=== PATIENT | female | born 1995 | race Caucasian/White ===

== ENCOUNTER 2017-02-25 16:29 | Emergency (ER) | payer SELFPAY ==
[~2017-02-25] VITALS: Ht 154.9 cm; Wt 119.0 kg
[2017-02-25 16:32] VITALS: BP 124/70; PULSE 75; RESP 16; TEMP 97.5; O2SAT 100
[2017-02-25] MEDS ORDERED: ONDANSETRON HCL 4 MG/2 ML VIAL IV PUSH ONE (17:00)
[2017-02-25] MEDS ORDERED: SODIUM CHLOR 0.9% 1000 ML INJ 1,000 ML IV ONE (17:00)
--- NOTE | 2017-02-25 17:02 | PD ---
HPI Chief Complaint: Dizziness Time Seen by Provider: 16:53 Travel History International Travel<30 days: No Contact w/Intl Traveler<30days: No Traveled to known affect area: No History of Present Illness HPI This 21-year-old female has been sick off and on since last . She had some vomiting and she felt lightheaded at times. She vomited throughout the night. Sunday she felt a little bit better and went to work. Today she is feeling lightheaded and is nauseated again. She has had some vomiting. she says there is no chance of . PFSH Past Medical History Asthma: Yes ( A CHILD) Autoimmune Disease: No Blood Disorders: No Anxiety: No Depression: Yes (ANSWERED BY MOTHER) Cardiovascular Problems: No Diminished Hearing: No GERD: Yes Genitourinary: No Musculoskeletal: No Neurologic: No Psychiatric: No Reproductive: No Respiratory: Yes (CHILDHOOD ASTHMA) Immunizations Current: Yes Sickle Cell Disease: No ?: Not LMP: LAST WEEK Menopausal: No Past Surgical History Appendectomy: No Cholecystectomy: Yes Other Surgery: No Social History Alcohol Use: No Tobacco Use: No Substance Use: No Allergies-Medications (Allergen,Severity, Reaction): Coded Allergies: Latex (Verified Allergy, Unknown, PT STATES NOT TRUE, 02/25/17) Uncoded Allergies: VINYL (Allergy, Intermediate, RASH, 11/15/16) Reported Meds & Prescriptions Reported Meds & Active Scripts Active No Active Prescriptions or Reported Medications Review of Systems General / Constitutional: No: Fever, Chills Eyes: No: Diploplia, Blurred Vision HENT: Positive: Lightheadedness Cardiovascular: No: Chest Pain or Discomfort, Palpitations Respiratory: No: Cough, Shortness of Breath Gastrointestinal: Positive: Nausea, Vomiting Genitourinary: No: Frequency, Dysuria Musculoskeletal: No: Myalgias, Arthralgias Skin: No Rash, No Itching Neurologic: No: Weakness, Dizziness Hematologic/Lymphatic: No: Easy Bruising Physical Exam Narrative GENERAL: Well-developed female SKIN: Focused skin assessment warm/dry. HEAD: Atraumatic. Normocephalic. EYES: Pupils equal and round. No scleral icterus. No injection or drainage. ENT: No nasal bleeding or discharge. Mucous membranes pink and moist. NECK: Trachea midline. No JVD. CARDIOVASCULAR: Regular rate and rhythm. No murmur appreciated. RESPIRATORY: No accessory muscle use. Clear to auscultation. Breath sounds equal bilaterally. GASTROINTESTINAL: Abdomen soft, non-tender, nondistended. Hepatic and splenic margins not palpable. MUSCULOSKELETAL: No obvious deformities. No clubbing. No cyanosis. No edema. NEUROLOGICAL: Awake and alert. No obvious cranial nerve deficits. Motor grossly within normal limits. Normal speech. PSYCHIATRIC: Appropriate mood and affect; insight and judgment normal. Data Data Last Documented VS Vital Signs Date Time Temp Pulse Resp B/P Pulse Ox O2 Delivery O2 Flow Rate FiO2 02/25/17 16:32 97.5 75 16 124/70 100 Orders Complete Blood Count With Diff (02/25/17 16:58) Comprehensive Metabolic Panel (02/25/17 16:58) Sodium Chlor 0.9% 1000 Ml Inj (Ns 1000 M (02/25/17 17:00) Ondansetron Inj (Zofran Inj) (02/25/17 17:00) Labs Laboratory Tests Test 02/25/17 17:05 White Blood Count 8.9 TH/MM3 Red Blood Count 4.23 MIL/MM3 Hemoglobin 13.1 GM/DL Hematocrit 37.3 % Mean Corpuscular Volume 88.1 FL Mean Corpuscular Hemoglobin 30.9 PG Mean Corpuscular Hemoglobin 35.1 % Concent Red Cell Distribution Width 11.4 % Platelet Count 203 TH/MM3 Mean Platelet Volume 10.1 FL Neutrophils (%) (Auto) 70.8 % Lymphocytes (%) (Auto) 20.8 % Monocytes (%) (Auto) 7.1 % Eosinophils (%) (Auto) 0.9 % Basophils (%) (Auto) 0.4 % Neutrophils # (Auto) 6.4 TH/MM3 Lymphocytes # (Auto) 1.8 TH/MM3 Monocytes # (Auto) 0.6 TH/MM3 Eosinophils # (Auto) 0.1 TH/MM3 Basophils # (Auto) 0.0 TH/MM3 CBC Comment DIFF FINAL Differential Comment Sodium Level 140 MEQ/L Potassium Level 4.1 MEQ/L Chloride Level 107 MEQ/L Carbon Dioxide Level 26.6 MEQ/L Anion Gap 6 MEQ/L Blood Urea Nitrogen 10 MG/DL Creatinine 0.61 MG/DL Estimat Glomerular Filtration 124 ML/MIN Rate Random Glucose 86 MG/DL Calcium Level 8.7 MG/DL Total Bilirubin 0.8 MG/DL Aspartate Amino Transf 20 U/L (AST/SGOT) Alanine Aminotransferase 37 U/L (ALT/SGPT) Alkaline Phosphatase 55 U/L Total Protein 6.9 GM/DL Albumin 3.5 GM/DL MDM Medical Decision Making Medical Screen Exam Complete: Yes Emergency Medical Condition: Yes Medical Record Reviewed: Yes Differential Diagnosis Differential includes food poisoning, gastroenteritis, dehydration Narrative Course Patient given IV fluids and Zofran. Lab work is unremarkable. She is stable for discharge impression is acute vomiting, most likely viral syndrome Diagnosis Primary Impression: Viral syndrome Departure Forms: Tests/Procedures, Work Release Scripts Ondansetron Odt (Zofran Odt)4 Mg Tab4 Mg SL Q6HR PRN (Nausea/Vomiting) #10 TAB Ref 0 Prov:Hari Layne MD 02/25/17 Disposition: 01 DISCHARGE HOME Condition: Stable Hari Layne MD Feb 25, 2017 17:02
[2017-02-25 17:10] LABS: AUTOMATED NEUTROPHIL # 6.4 TH/MM3 (1.8-7.7); BASOPHIL % 0.4 % (0.0-2.0); EOSINOPHIL # 0.1 TH/MM3 (0-0.4); EOSINOPHIL % 0.9 % (0.0-4.0); HEMATOCRIT 37.3 % (35.0-46.0); HEMO FLAGS DIFF FINAL; LYMPH % 20.8 % (9.0-44.0); LYMPHOCYTE # 1.8 TH/MM3 (1.0-4.8); MEAN CELL VOLUME 88.1 FL (80.0-100.0); MEAN CORPUSCULAR HEMOGLOBIN 30.9 PG (27.0-34.0); MEAN CORPUSCULAR HGB CONC 35.1 % (32.0-36.0); MONO % 7.1 % (0.0-8.0); NEUT % 70.8 % (16.0-70.0); PLATELET COUNT 203 TH/MM3 (150-450); RED BLOOD COUNT 4.23 MIL/MM3 (4.00-5.30); RED CELL DISTRIBUTION WIDTH 11.4 % (11.6-17.2); WHITE BLOOD COUNT 8.9 TH/MM3 (4.0-11.0)
[2017-02-25 17:19] LABS: CHLORIDE 107 MEQ/L (98-107); POTASSIUM 4.1 MEQ/L (3.5-5.1); SODIUM (NA) 140 MEQ/L (136-145)
[2017-02-25 17:23] LABS: ANION GAP 6 MEQ/L (5-15); BICARBONATE 26.6 MEQ/L (21.0-32.0); BLOOD UREA NITROGEN 10 MG/DL (7-18)
[2017-02-25 17:26] LABS: ALT (GPT) 37 U/L (10-53); AST (GOT) 20 U/L (15-37); GLOMERULAR FILTRATION RATE 124 ML/MIN (>89)
[2017-02-25 17:28] LABS: TOTAL BILIRUBIN ADULT 0.8 MG/DL (0.2-1.0)
[2017-02-25 17:29] LABS: ALKALINE PHOSPHATASE 55 U/L (45-117)
[2017-02-25] MEDS ORDERED: ZOFR4TAB3 SL (17:48)
== END 2017-02-25 18:14 | disposition home or self-care (01) ==
LOC: PHED 16:29
DX: B34.9 Viral infection, unspecified (principal); R11.2 Nausea with vomiting, unspecified; R42 Dizziness and giddiness; Z87.09 Personal history of other diseases of the respiratory system; Z86.59 Personal history of other mental and behavioral disorders; Z87.19 Personal history of other diseases of the digestive system
CPT/HCPCS: 80053; 85025; 96361; 96374; 99284; J2405; J7030

== ENCOUNTER 2017-04-20 13:01 | Emergency (ER) | payer SELFPAY ==
[~2017-04-20 13:01] MED LIST: ZOFR4TAB3 SL
[2017-04-20 13:07] VITALS: BP 119/84; PULSE 83; RESP 20; TEMP 98.4; O2SAT 97
[2017-04-20] MEDS ORDERED: ONDANSETRON ODT 4 MG TAB PO ONE (13:30)
--- NOTE | 2017-04-20 13:36 | PD ---
HPI Chief Complaint: GI Complaint Time Seen by Provider: 13:20 Travel History International Travel<30 days: No Contact w/Intl Traveler<30days: No Traveled to known affect area: No History of Present Illness HPI This patient complains of nausea. Duration 6 days. Symptoms started with vomiting and diarrhea but those have resolved but her nausea remains. She is not having abdominal or pelvic pain. Doesn't think she is . No fever. She has no gallbladder. No alleviating factors PFSH Past Medical History Asthma: Yes ( A CHILD) Autoimmune Disease: No Blood Disorders: No Anxiety: No Depression: Yes (ANSWERED BY MOTHER) Cardiovascular Problems: No Diminished Hearing: No GERD: Yes Genitourinary: No Medical other: Yes (HERNIA) Musculoskeletal: No Neurologic: No Psychiatric: No Reproductive: No Respiratory: Yes (CHILDHOOD ASTHMA) Immunizations Current: Yes Sickle Cell Disease: No ?: Not LMP: 04/05-04/10/17 Menopausal: No Past Surgical History Appendectomy: No Cholecystectomy: Yes Other Surgery: No Social History Alcohol Use: No Tobacco Use: No Substance Use: No Allergies-Medications (Allergen,Severity, Reaction): Coded Allergies: Latex (Verified Allergy, Unknown, PT STATES NOT TRUE, 04/20/17) Uncoded Allergies: VINYL (Allergy, Intermediate, RASH, 11/15/16) Reported Meds & Prescriptions Reported Meds & Active Scripts Active Zofran Odt (Ondansetron Odt) 4 Mg Tab 4 Mg SL Q6HR PRN Review of Systems General / Constitutional: No: Fever HENT: No: Headaches Cardiovascular: No: Chest Pain or Discomfort Respiratory: No: Cough Gastrointestinal: Positive: Nausea Physical Exam Narrative GASTROINTESTINAL: Abdomen soft, non-tender, nondistended. Positive bowel sounds. No hepato-splenomegaly, or palpable masses. No guarding. SKIN: Focused skin assessment reveals no rash or ulcers. Skin is warm and dry. Palpation shows no induration or nodules. NECK: Symmetrical appearance, midline trachea. No mass or crepitus. Thyroid without enlargement, tenderness, or mass. Data Data Last Documented VS Vital Signs Date Time Temp Pulse Resp B/P Pulse Ox O2 Delivery O2 Flow Rate FiO2 04/20/17 13:07 98.4 83 20 119/84 97 Orders Ed Urine Pregnancytest Poc (04/20/17 13:29) Ondansetron Odt (Zofran Odt) (04/20/17 13:30) Urinalysis - C+S If Indicated (04/20/17 13:46) Urine Culture (04/20/17 13:49) Labs Laboratory Tests Test 04/20/17 13:49 Urine Collection Type CLEAN CATCH Urine Color YELLOW Urine Turbidity CLOUDY Urine pH 6.0 Urine Specific Winfred 1.030 Urine Protein TRACE mg/dL Urine Glucose (UA) NEG mg/dL Urine Ketones NEG mg/dL Urine Occult Blood NEG Urine Nitrite NEG Urine Bilirubin NEG Urine Leukocyte Esterase MOD Urine WBC 9-14 /hpf Urine Squamous Epithelial > 8 /hpf Cells Microscopic Urinalysis Comment CULTURE INDICATED MDM Medical Decision Making Medical Screen Exam Complete: Yes Emergency Medical Condition: Yes Medical Record Reviewed: Yes Differential Diagnosis Gastroenteritis, colitis, Narrative Course I have reviewed the patient's electronic medical record. Urine is negative I gave her dose of Zofran Zofran prescription written Abdomen is soft and benign and nontender She looks euvolemic Urine will be cultured but I'm not overly suspicious this is the cause of her symptoms There is a lot of epithelial cells in the urine, likely contaminant Diagnosis Primary Impression: Nausea alone Additional Instructions: The patient was advised to follow up with their physician and return if they worsen. Med/Other Pt SpecificInfo: Prescription(s) given Scripts Ondansetron (Zofran)4 Mg Tab4 Mg PO Q6HR PRN (NAUSEA OR VOMITING) #12 TAB Ref 0 Prov:Mark Portillo MD 04/20/17 Disposition: 01 DISCHARGE HOME Condition: Stable Mark Portillo MD Apr 20, 2017 13:36
[2017-04-20 13:57] LABS: BLOOD, URINE NEG (NEG); GLUCOSE,URINE NEG (NEG); KETONE, URINE NEG (NEG); NITRITE,URINE NEG (NEG)
[2017-04-20 14:03] LABS: METHOD OF COLLECTION CLEAN CATCH; URINE COLOR YELLOW (YELLW/STRAW)
[2017-04-20 14:04] LABS: SQUAMOUS EPITHELIAL CELL URINE > 8 /hpf (0-5)
[2017-04-20 14:05] LABS: COMMENT (UR) CULTURE INDICATED; CULTURE IF INDICATED CULTURE INDICATED
[2017-04-20] MEDS ORDERED: ZOFR4TAB PO (14:11)
[2017-05-01] MEDS ORDERED: PROM25TA10 PO (09:20)
== END 2017-04-20 14:32 | disposition home or self-care (01) ==
LOC: PHED 13:01
DX: R11.0 Nausea (principal); R82.99 Other abnormal findings in urine; Z87.09 Personal history of other diseases of the respiratory system; Z87.19 Personal history of other diseases of the digestive system
CPT/HCPCS: 81001; 84703; 87086; 99283